=== PATIENT | female | born 1955 | race Caucasian/White ===

== ENCOUNTER 2024-06-30 07:50 | Emergency (ER) | payer OTHER ==
[2024-06-30] MEDS ORDERED: Ondansetron PF 4 MG/2 ML Vial ONE (08:19)
[2024-06-30] MEDS ORDERED: Ketorolac Tromethamine 30 MG (1 mL) VIAL ONE (08:19)
[2024-06-30] MEDS ORDERED: Sodium Chloride 0.9% 1,000 ML ONE (08:19)
[2024-06-30 08:43] LABS: Base Excess-Venous -2.1 mmol/L (-2.0 to 3.0); Bicarbonate (HCO3v) 22.6 mmol/L (22.0-28.0); CO2 Tension (PvCO2) 37.5 mmHg (42.0-51.0); vO2 Saturation-calc 90.6 % (60.0-85.0)
[2024-06-30 08:44] LABS: ALT (SGPT) 12 U/L (8-55); AST (SGOT) 15 U/L (5-34); Alkaline Phosphatase 97 U/L (40-110); Anion Gap 13 mmol/L (10-20); BUN (Urea Nitrogen) 12 mg/dL (9.8-20.1); Bilirubin, Total 0.6 mg/dL (0.2-1.2); Calc. Creatinine Clearance 0 mL/min (70-130); Calcium, Ionized 1.16 mmol/L (1.15-1.33); Carbon Dioxide 22 mmol/L (23-31); Chloride 106 mmol/L (98-107); Chloride 107 mmol/L (98-107); Estimated GFR 61; Globulin 2.9 g/dL (2.4-3.5); Glucose 168 mg/dL (80-115); Hemoglobin - Calc 13.6 g/dL (12.0-16.0); Lipase 29 U/L (8-78); Magnesium 1.7 mg/dL (1.6-2.6); Potassium 3.5 mmol/L (3.5-5.1); Protein, Total 6.9 g/dL (5.8-8.1); Sodium 138 mmol/L (136-145); Sodium 139 mmol/L (138-145); T. Carbon Dioxide 23.7 mmol/L (22.0-28.0)
[2024-06-30 08:48] LABS: Hematocrit 39.9 % (36.0-47.0); Hemoglobin 12.9 g/dL (12.0-16.0); Mean Corpuscular HGB CONC 32.2 g/dL (32.0-36.0); Mean Corpuscular Hemoglobin 30.1 pg (27.0-31.0); Mean Corpuscular Volume 93.5 fl (78.0-98.0); Mean Platelet Volume 7.6 fL (7.4-10.4); Platelet Count 242 10x3/uL (130-400); RBC Distribution Width 12.3 % (11.5-14.5); Red Blood Cell (RBC) Count 4.27 mill/uL (4.20-5.40); White Blood Cell (WBC) Count 10.6 10x3/uL (4.8-10.8)
[2024-06-30 08:56] LABS: Band 1 % (5-11); Eosinophils 1 % (0-10); Lymphocytes 8 % (21-51); MDiff Complete? YES; Manual Diff?? YES; Monocytes 3 % (0-10); Neutrophil 87 % (42-75)
[2024-06-30 08:57] LABS: Platelet Adequacy Comment Platelets Normal; Troponin I Less than 0.010 ng/mL (< 0.028)
[2024-06-30] MEDS ORDERED: Iopamidol 370 76% 100 ML VIAL ONE (09:00)
[2024-06-30 09:26] LABS: Bilirubin Negative (Negative); Blood, Urine Negative (Negative); Clarity Slightly Cloudy (Clear); Glucose, Urine (Dipstick) Negative (Negative); Ketone, Urine 40 mg/dL (Negative); Leukocyte Negative (Negative); Nitrite Negative (Negative); Protein, Urine (Dipstick) Negative (Neg-Trace); Specific Gravity, Urine 1.015 (1.005-1.030); Urobilinogen 0.2 mg/dL (Less than 2)
[2024-06-30 09:37] LABS: CAUTI Indications for Culture Pelvic or flank pain; RBC/HPF 0-3 HPF (0-3); WBC/HPF 0-3 HPF (0-3)
[2024-06-30 09:38] LABS: Urine Culture Reflex No No
== END 2024-06-30 10:02 | disposition home or self-care (01) ==
LOC: MADERS 07:50
DX: K80.20 Calculus of gallbladder without cholecystitis without obstruction (principal); I10 Essential (primary) hypertension; E11.9 Type 2 diabetes mellitus without complications; M79.7 Fibromyalgia; E03.9 Hypothyroidism, unspecified; K21.9 Gastro-esophageal reflux disease without esophagitis; Z79.890 Hormone replacement therapy; Z79.899 Other long term (current) drug therapy
CPT/HCPCS: 74177; 80053; 81001; 82330; 82435; 82803; 83605; 83690; 83735; 84132; 84295; 84484; 85014; 85025; 93005; 96374; 96375; J1885; J2405; J7030; Q9967